=== PATIENT | female | born 1970 | race Caucasian/White ===

== ENCOUNTER 2019-03-14 11:00 | Emergency (ER) | payer BC ==
[~2019-03-14] VITALS: Ht 160 cm; Wt 109.1 kg
[2019-03-14 11:07] VITALS: BP 124/47; TEMP 98
[2019-03-14] MEDS ORDERED: ULTRAM 50MG TAB50 MG PO (11:11)
[2019-03-14 14:28] VITALS: PULSE 74
== END 2019-03-14 14:30 | disposition home or self-care (01) ==
LOC: COL.ER 11:00
DX: M62.830 Muscle spasm of back (principal); M54.5 Low back pain; G89.29 Other chronic pain
CPT/HCPCS: J1885

== ENCOUNTER → 2019-03-28 | Outpatient (CLI) | payer BC ==
[~2019-03-28] MED LIST: ULTRAM 50MG TAB50 MG PO
== END ==
LOC: MC.RAD 14:30
DX: Z12.31 Encounter for screening mammogram for malignant neoplasm of breast (principal)

== ENCOUNTER → 2020-03-29 | Outpatient (CLI) | payer BC | LOC: MC.RAD 16:13 | DX: Z12.31 Encounter for screening mammogram for malignant neoplasm of breast (principal) ==

== ENCOUNTER → 2020-06-26 | Outpatient (CLI) | payer BC | LOC: ZLAB.KSTAT 15:19 | DX: U07.1 COVID-19 (principal) ==

== ENCOUNTER → 2021-06-03 | Outpatient (CLI) | payer BC | LOC: MC.RAD 08:34 | DX: Z12.31 Encounter for screening mammogram for malignant neoplasm of breast (principal) ==

== ENCOUNTER → 2023-12-28 | Outpatient (CLI) | payer BC | LOC: MC.RAD 09:50 | DX: Z12.31 Encounter for screening mammogram for malignant neoplasm of breast (principal) ==